=== PATIENT | male | born 1970 | race Caucasian/White ===

== ENCOUNTER 2016-11-05 07:06 | Emergency (ER) | payer OTHER ==
--- NOTE | ~2016-11-05 | CT71 ---
[facility] A Service of [facility] RADIOLOGY TEXT RESULTS PATIENT: SAYRA YANCEY LOCATION: [facility] : 70 UNIT #: [id number] AGE: [address]: Linsey Ladd MD SEX: M ORDER DR: [id number] [address] [address] [id number] E MR#: [id number] Acc #: [id number] NAME: SAYRA YANCEY : 1970 SEX: M STUDY DATE/TIME: 11/05/2016 9:01 UNIT: YOAN ROOM: STUDY DESCRIPTION: CT Head Wo Contrast Attending Physician: Linsey Ladd M.D. Ordering Physician: Linsey Ladd M.D. Primary Care Physician: No Primary Care Physician MEDICAL IMAGING REPORT This report is preliminary unless electronic signature is present EXAM CT head without contrast. DATE 11/05/2016 at 0901 HISTORY Dyspnea from near syncope this morning. COMPARISON None TECHNIQUE This CT exam was performed with one or more of the following radiation dose reduction techniques: automatic exposure control, adjustment of mA and/or kV according to patient size, and iterative reconstruction. FINDINGS No intracranial hemorrhage, mass lesion, mass effect, or midline shift is seen. Fisher matter-white matter junction distinction appears preserved, without CT evidence of acute or evolving infarct. Ventricular configuration is within normal limits. Mastoid air cells are clear. Imaged paranasal sinuses appear clear. No acute calvarial abnormality is identified. IMPRESSION Normal noncontrast CT head. Dictated by... Hoa Franklin M.D. [facility] A Service of [facility] RADIOLOGY TEXT RESULTS PATIENT: SAYRA YANCEY LOCATION: [facility] : 70 UNIT #: [id number] AGE: [address]: Linsey Ladd MD SEX: M ORDER DR: THIS IS AN ELECTRONICALLY VERIFIED REPORT Hoa Franklin M.D. at 11/06/2016 7:08 AM FELICIA/oral TD: 11/05/2016 12:08 JOB #: [id number] MEDICAL IMAGING REPORT Page 1 of 1 COPY
--- NOTE | ~2016-11-05 | CR72 ---
[facility] A Service of [facility] RADIOLOGY TEXT RESULTS PATIENT: SAYRA YANCEY LOCATION: [facility] : 70 UNIT #: [id number] AGE: [address]: Linsey Ladd MD SEX: M ORDER DR: [id number] [address] [address] [id number] E MR#: [id number] Acc #: [id number] NAME: SAYRA YANCEY : 1970 SEX: M STUDY DATE/TIME: 11/05/2016 8:04 UNIT: [facility] ROOM: STUDY DESCRIPTION: CR Chest Single View Portable Attending Physician: Linsey Ladd M.D. Ordering Physician: Linsey Ladd M.D. Primary Care Physician: No Primary Care Physician MEDICAL IMAGING REPORT This report is preliminary unless electronic signature is present EXAM Portable chest, 1 view. DATE OF STUDY 11/05/2016 COMPARISON STUDIES None CLINICAL HISTORY Short of air and near syncope today. Bradycardia. FINDINGS Submaximal inspiration but otherwise negative. No consolidation, effusion, or pneumothorax, or suspicious nodule. IMPRESSION Submaximal inspiration. Otherwise negative. Dictated by... Joaquim Quinteros M.D. THIS IS AN ELECTRONICALLY VERIFIED REPORT Joaquim Quinteros M.D. at 11/07/2016 1:22 PM TEV/tmw TD: 11/05/2016 12:00 JOB #: [id number] MEDICAL IMAGING REPORT [facility] A Service of [facility] RADIOLOGY TEXT RESULTS PATIENT: SAYRA YANCEY LOCATION: [facility] : 70 UNIT #: [id number] AGE: [address]: Linsey Ladd MD SEX: M ORDER DR: Page 1 of 1 COPY
--- NOTE | ~2016-11-05 | EKG ---
PATIENT: SAYRA YANCEY UNIT #: [id number] Ventricular Rate: 53 BPM Atrial Rate: 53 BPM P-R Interval: 124 ms QRS Duration: 84 ms Q-T Interval: 436 ms QTC Calculation(Bezet): 409 ms P [employer]: 22 degrees Calculated R [employer]: 15 degrees Calculated T [employer]: -12 degrees Diagnosis Line: Sinus bradycardia Diagnosis Line: Otherwise normal ECG Diagnosis Line: No previous ECGs available Diagnosis Line: Confirmed by GARY DOZIER MD ([id number]) on Diagnosis Line: 11/05/2016 8:37:58 AM INTERPRETING MD: JACOBY PHAN
[2016-11-05 07:58] LABS: BASOPHIL% 0.3 % (0-2.5); EOSINOPHIL# 0.1 X10e3 (0-0.7); EOSINOPHIL% 0.6 % (0.0-7.0); HEMOGLOBIN 15.2 gm/dL (13.0-16.0); LYMPHOCYTE# 1.6 X10e3 (1.0-3.5); LYMPHOCYTE% 16.7 % (17.0-45.0); MEAN CELL VOLUME 86.2 FL (83-96); MEAN CORPUSCULAR HEMOGLOBIN 28.5 PG (28-34); MEAN CORPUSCULAR HGB CONC 33.1 g/dL (30-36); MEAN PLATELET VOLUME 8.7 FL (6.5-11.5); MONOCYTE# 0.5 X10e3 (0-1.0); MONOCYTE% 5.5 % (3.0-12.0); NEUTROPHIL# 7.2 X10e3 (1.5-7.1); NEUTROPHIL% 76.9 % (40-75); PLATELET COUNT 173 X10e3 (140-420); RED BLOOD COUNT 5.33 X10e (3.90-5.60); RED CELL DISTRIBUTION WIDTH 14.3 % (11.0-15.5); WHITE BLOOD COUNT 9.4 X10e3 (4.0-10.5)
[2016-11-05 08:00] LABS: DIFF IND NO
[2016-11-05 08:15] LABS: PARTIAL THROMBOPLASTIN TIME 26.1 SECONDS (23.5-31.3); PROTHROMBIN TIME (PATIENT) 10.4 SECONDS (9.6-11.5)
[2016-11-05 08:21] LABS: ALBUMIN SERUM 4.3 g/dL (3.5-5.0); BILIRUBIN, DIRECT 0.1 mg/dL (0.0-0.2); BILIRUBIN,INDIRECT 0.9 mg/dL (0.0-0.9); BUN/CREATININE RATIO 13.63; CALCIUM SERUM 9.2 mg/dL (8.4-10.2); CREATININE SERUM 1.1 mg/dL (0.6-1.4); GLOM FILT RATE Estimated 80.1 mL/min (>60); MAGNESIUM 1.9 mg/dL (1.6-3.0); POTASSIUM 4.2 mmol/L (3.5-5.1); PROTEIN TOTAL SERUM 7.7 g/dL (6.0-8.3)
[2016-11-05 09:11] LABS: POC - CKMB 1.4 ng/mL (0.0-7.9); POC - TROPONIN <0.05 ng/mL (<=0.05)
[2016-11-05 09:49] LABS: POC - CKMB 1.3 ng/mL (0.0-7.9); POC - TROPONIN <0.05 ng/mL (<=0.05)
[2016-11-05 12:33] LABS: POC - CKMB 1.8 ng/mL (0.0-7.9); POC - TROPONIN <0.05 ng/mL (<=0.05)
== END 2016-11-05 12:42 | disposition home or self-care (01) ==
LOC: CED 07:06
PROVIDERS: Student in an Organized Health Care Education/Training Program
DX: R55 Syncope and collapse (principal); R11.0 Nausea; F17.210 Nicotine dependence, cigarettes, uncomplicated
CPT/HCPCS: 36415; 70450; 71010; 80048; 80076; 82553; 83735; 83880; 84484; 85025; 85610; 85730; 93005; 96360; 99284; J2405